=== PATIENT | female | born 1965 | race African-American/Black ===

== ENCOUNTER 2016-06-24 11:45 | Emergency (ER) | payer OTHER ==
[~2016-06-24] VITALS: Ht 167.6 cm; Wt 81.0 kg
[~2016-06-24 11:45] MED LIST: ALL DAY ALLERGY10 M3 PO; ANAPROX275 M1 PO; ATORVASTATIN CA10 MG PO; BACTRIM,SEPT1 TABLE1 PO; CLONAZEPAM0.5 MG PO; ENALAPRIL MALEAT5 MG; ENALAPRIL MALEAT5 MG PO; EPZICOM1 TABLET PO; LEVOTHROID25 MCG PO; LEVOTHYROXINE150 MCG PO; LEVOTHYROXINE175 MCG PO; MOTRIN600 MG PO; NORVIR100 M1 PO; PRILOSEC20 MG PO; REYATAZ300 MG PO; ROBITUSSIN AC,T10 ML PO; ROBITUSSIN DM118 ML PO; SUSTIVA50 MG PO; TAMIFLU75 MG PO; TESSALON PERLE100 MG PO; ULTRAM50 MG PO; VENLAFAXINE H37.5 M3 PO; VITAMIN D50000 UNI4 PO; ZOFRAN8 MG PO
[2016-06-24 13:38] LABS: HEMATOCRIT 45.1 % (36.0-46.0); MCH 31.3 PG (29.0-34.0); MCHC 32.6 G/DL (30.0-36.0); MCV 96.2 FL (83-99); MEAN PLAT.VOLUME 11.8 uM^3 (9.5-12.4); PLATELET COUNT 209 K/uL (156-360); RBC DIS.WIDTH-CV 14.6 % (11.8-14.6); RBC DIS.WIDTH-SD 51.4 % (39-53); RED BLOOD COUNT 4.69 M/uL (3.80-5.20); WHITE BLOOD COUNT 4.6 K/uL (4.1-10.2)
[2016-06-24 13:47] LABS: CHLORIDE 102 mEq/L (99-109); POTASSIUM 4.4 mEq/L (3.7-5.4); SODIUM 140 mEq/L (136-147)
[2016-06-24 13:49] LABS: GLUCOSE 96 mg/dL (70-99)
[2016-06-24 13:51] LABS: ANION GAP 12 MEQ/L (2-14); TOTAL BILIRUBIN 0.6 mg/dL (0.0-1.0)
[2016-06-24 13:53] LABS: ALKALINE PHOSPHATASE 83 IU/L (3-129); GFR ESTIMATE (CALCULATED) 56 mL/min/
[2016-06-24 13:54] LABS: UREA NITROGEN (BUN) 14 mg/dL (9-23)
[2016-06-24 13:55] LABS: DIRECT BILIRUBIN 0.1 mg/dL (0.0-0.3)
[2016-06-24 13:56] LABS: LIPASE 12 U/L (1.0-51.0)
[2016-06-24] MEDS ORDERED: ZANTAC150 MG PO (14:28)
[2016-06-24] MEDS ORDERED: ZOFRAN4 MG PO (14:28)
[2016-06-24 14:43] VITALS: BP 126/74
== END 2016-06-24 14:46 | disposition home or self-care (01) ==
LOC: EME 11:45 → EXP 11:45
PROVIDERS: Emergency Medicine
DX: K29.00 Acute gastritis without bleeding (principal); E11.9 Type 2 diabetes mellitus without complications; I10 Essential (primary) hypertension; E03.9 Hypothyroidism, unspecified; Z21 Asymptomatic human immunodeficiency virus [HIV] infection status; Z87.440 Personal history of urinary (tract) infections
CPT/HCPCS: 80048; 80076; 81003; 83690; 85027; 99281; 99284; J1885; J2405; J7030

== ENCOUNTER → 2016-08-11 | Outpatient (CLI) | payer OTHER ==
[~2016-08-11] VITALS: Ht 167.6 cm; Wt 83.0 kg
[~2016-08-11] MED LIST changes: +ENALAPRIL MALEA10 MG PO; +GENVOYA TABLET1 EACH PO; +ZANTAC150 MG PO; +ZOFRAN4 MG PO; +[UNRECOGNIZED DRUG - OTHER] PO
== END | disposition home or self-care (01) ==
LOC: AMB 08:51
PROC: 0DBN8ZX Excision of Sigmoid Colon, Via Natural or Artificial Opening Endoscopic, Diagnostic (ICD-10-PCS; principal; 2016-08-11)
DX: Z12.11 Encounter for screening for malignant neoplasm of colon (principal); K63.5 Polyp of colon; K57.30 Diverticulosis of large intestine without perforation or abscess without bleeding; R17 Unspecified jaundice; B20 Human immunodeficiency virus [HIV] disease; E07.9 Disorder of thyroid, unspecified; Z87.891 Personal history of nicotine dependence
CPT/HCPCS: 88305; 93005; J2250

== ENCOUNTER 2016-10-24 08:11 | Emergency (ER) | payer OTHER ==
[~2016-10-24] VITALS: Ht 167.6 cm; Wt 82.0 kg
[2016-10-24] MEDS ORDERED: NAPROXEN500 MG PO (08:50)
[2016-10-24 10:17] VITALS: BP 126/92
== END 2016-10-24 10:41 | disposition home or self-care (01) ==
LOC: EME 08:11
DX: S46.002A Unspecified injury of muscle(s) and tendon(s) of the rotator cuff of left shoulder, initial encounter (principal); X58.XXXA Exposure to other specified factors, initial encounter; Y99.0 Civilian activity done for income or pay; E03.9 Hypothyroidism, unspecified
CPT/HCPCS: 99281; 99283; J1885

== ENCOUNTER 2017-06-16 07:04 | Emergency (ER) | payer OTHER ==
[~2017-06-16] VITALS: Ht 167.6 cm; Wt 79.7 kg
[~2017-06-16 07:04] MED LIST changes: +NAPROXEN500 MG PO
[2017-06-16] MEDS ORDERED: PEN-VEE K,VEET500 MG PO (08:11)
[2017-06-16 08:19] VITALS: BP 142/89
== END 2017-06-16 08:20 | disposition home or self-care (01) ==
LOC: EME 07:04
DX: J02.0 Streptococcal pharyngitis (principal); I10 Essential (primary) hypertension; E78.5 Hyperlipidemia, unspecified
CPT/HCPCS: 87651 90; 99281; 99283

== ENCOUNTER 2017-09-17 22:42 | Emergency (ER) | payer OTHER ==
[~2017-09-17] VITALS: Ht 167.6 cm; Wt 79.2 kg
[~2017-09-17 22:42] MED LIST changes: +PEN-VEE K,VEET500 MG PO
[2017-09-18] MEDS ORDERED: AMOXICILLIN500 MG PO (00:51)
[2017-09-18 01:09] VITALS: BP 148/87
== END 2017-09-18 01:10 | disposition home or self-care (01) ==
LOC: EME 22:42 → EXP 22:42
DX: J02.9 Acute pharyngitis, unspecified (principal); I10 Essential (primary) hypertension; B20 Human immunodeficiency virus [HIV] disease
CPT/HCPCS: 87081; 87651 90